=== PATIENT | female | born 1935 | race Caucasian/White ===

== ENCOUNTER → 2018-03-30 12:47 | Outpatient (CLI) | payer MEDICARE, SELFPAY | DX: N30.00 Acute cystitis without hematuria (principal) | CPT/HCPCS: 87086 ==

== ENCOUNTER → 2018-04-29 10:05 | Outpatient (CLI) | payer MEDICARE, SELFPAY ==
--- NOTE | 2018-04-29 10:34 | DI.RAD.S_ITS ---
PROCEDURE: XR SHOULDER RT MIN 2V INDICATIONS: Thoracic back pain, recent fall TECHNIQUE: 3 views of the shoulder were acquired. COMPARISON: None. FINDINGS: Bones: No fractures or dislocations. No suspicious bony lesions. Visualized ribs appear intact. Advanced arthritis at the a.c. joint. Soft tissues: No suspicious soft tissue calcifications. IMPRESSION: 1. No fracture or dislocation. 2. Osteoarthritis acromioclavicular joint. Dictated by: Kieran Zamudio M.D. on 04/29/2018 at 11:31 Approved by: Kieran Zamudio M.D. on 04/29/2018 at 11:32
--- NOTE | 2018-04-29 10:34 | DI.RAD.S_ITS ---
PROCEDURE: XR LUMBAR SPINE 2-3V INDICATIONS: Lumbar and sacral arthritis, recent fall TECHNIQUE: 3 views of the lumbar spine were acquired. COMPARISON: [facility], CR, XR LUMBAR SPINE W FL EX MIN 4VW, 12/03/2016, 10:08. FINDINGS: Bones: 5 [id number] vertebrae are present. There is grade one anterolisthesis at L4-5 and L5-S1, unchanged. Disc narrowing and facet arthropathy at both those levels. Facet narrowing also present at L3-4. No vertebral body compression fractures. No suspicious bony lesions. Soft tissues: Overlying bowel gas pattern is normal. Vascular calcifications. IMPRESSION: 1. Degenerative disc disease, facet arthropathy and malalignment L4-5 and L5-S1, unchanged. 2. Facet arthropathy L3-L4, unchanged. 3. No acute fracture. Dictated by: Kieran Zamudio M.D. on 04/29/2018 at 11:29 Approved by: Kieran Zamudio M.D. on 04/29/2018 at 11:31
--- NOTE | 2018-04-29 10:34 | DI.RAD.S_ITS ---
PROCEDURE: XR THORACIC SPINE 3V INDICATIONS: Thoracic back pain, recent fall TECHNIQUE: 3 views of the thoracic spine were acquired. COMPARISON: None. FINDINGS: Bones: Mild levoconvex curvature upper thoracic spine. Degenerative disc narrowing and anterior bony lipping mid thoracic spine. There is mild angulation deformity in the anterior endplate of T8, raising possibility of minimal fracture. Height of the T8 vertebral body is slightly reduced. No suspicious bony lesions. 12 pairs of ribs are noted, and appear intact where visualized. Soft tissues: No paravertebral stripe thickening. IMPRESSION: 1. Mild scoliosis and degenerative changes. 2. Slight compression deformity of T8 vertebral body is of indeterminate chronicity. Correlate clinically. Suggest follow up exam in 3 weeks to determine any interval change Dictated by: Kieran Zamudio M.D. on 04/29/2018 at 11:10 Approved by: Kieran Zamudio M.D. on 04/29/2018 at 11:28
[2018-04-29 10:39] LABS: Appearance Urine UA CLEAR; Bilirubin Urine UA NEGATIVE (NEGATIVE); Color Urine UA YELLOW; Glucose Urine UA NEGATIVE (Normal); Ketones Urine UA NEGATIVE (NEGATIVE); Leukocyte Esterase Urine UA NEGATIVE (NEGATIVE); Nitrite Urine UA Negative (Negative); Occult Blood Urine UA NEGATIVE (Negative); Protein Urine UA NEGATIVE (Negative); Urobilinogen Urine UA 0.2 E.U./dL (0.2)
[2018-04-29 11:03] LABS: Add Manual Diff / Slide Review NO; Eosinophils Percent Auto 2.1 % (2-4); Hematocrit 44.3 % (36-46); Lymphocytes Percent Auto 19.8 % (25-40); Mean Corpuscular HGB Conc 33.7 % (30-36); Mean Corpuscular Hemoglobin 32.5 PG (26-34); Mean Corpuscular Volume 96.5 fL (80-100); Monocytes Percent Auto 7.3 % (3-14); Neutrophils Absolute Auto 6700 /uL (3000-5900); Neutrophils Percent Auto 69.8 % (50-75); Platelet Count 394 X10^3/uL (150-400); Red Blood Cell Count 4.59 X10^6/uL (4.0-5.2); White Blood Cell Count 9.6 X10^3/uL (4.5-11.0)
[2018-04-29 11:26] LABS: Alanine Aminotransferase 29 IU/L (9-52); Albumin 3.9 g/dL (3.5-5.0); Albumin Globulin Ratio 1.5 (1.0-2.8); Alkaline Phosphatase 85 U/L (38-126); Aspartate Aminotransferase 28 IU/L (14-36); BUN Creatinine Ratio 17.8 (6-22); Bilirubin Total 0.5 mg/dL (0.2-1.3); Blood Urea Nitrogen 16 mg/dL (7-17); Carbon Dioxide 30 mmol/L (22-32); Chloride 101 mmol/L (98-107); Estimated Glomerular Filt Rate 59.9 mL/min (>60); Globulin 2.6 g/dL (1.7-4.1); Glucose 90 mg/dL (80-110); HEMOLYSIS < 15 (0-50); Potassium 4.9 mmol/L (3.4-5.1); Sodium 139 mmol/L (137-145); Total Protein 6.5 g/dL (6.3-8.2); Uric Acid 5.1 mg/dL (2.5-6.2)
[2018-04-29 11:31] LABS: Rheumatoid Factor < 8.6 IU/mL (<12.0)
[2018-04-29 12:23] LABS: Thyroid Stimulating Hormone 1.85 uIU/mL (0.47-4.68)
[2018-04-29 12:31] LABS: Erythrocyte Sedimentation Rate 28 MM/HR (0-20)
[2018-05-02 04:55] LABS: ANA Screen NEGATIVE (Negative); DNA Antibody Crithidia IFA NEGATIVE (Negative); Rheumatoid Factor <14 IU/mL; Sjogren Antiboday SS-A <1.0 NEG AI (<1.0 NEGATIVE); Sjogren Antiboday SS-B <1.0 NEG AI (<1.0 NEGATIVE); Sm Antibody <1.0 NEG AI (<1.0 NEGATIVE); Sm/RNP Antibody <1.0 NEG AI (<1.0 NEGATIVE)
== END ==
PROVIDERS: PCP Family Medicine; Visit Provider Family Medicine
DX: M48.9 Spondylopathy, unspecified (principal); M54.6 Pain in thoracic spine; K21.9 Gastro-esophageal reflux disease without esophagitis; Z13.29 Encounter for screening for other suspected endocrine disorder
CPT/HCPCS: 72072; 72100; 73030; 80053; 81003; 84443; 84550; 85025; 85651; 86038; 86430

== ENCOUNTER → 2019-06-08 11:13 | Outpatient (CLI) | payer MEDICARE, SELFPAY ==
--- NOTE | 2019-06-08 11:17 | DI.RAD.S_ITS ---
PROCEDURE: XR LUMBAR SPINE MIN 4V INDICATIONS: balance and gait issues TECHNIQUE: 5 views of the lumbar spine were acquired. COMPARISON: [facility], MR, MR LUMBAR SPINE WITHOUT CONTRAST, 04/13/2019, 10:58. [facility], CR, XR LUMBAR SPINE 2-3V, 04/29/2018, 10:24. FINDINGS: Bones: 5 nonrib-bearing vertebrae are present. There is abnormal bony alignment, as has been previously the case with grade 1-2 anterolisthesis of L4 on L5 and also L5 on S1. A rudimentary disc is noted at S1-S2.. No vertebral body compression fractures. No suspicious bony lesions. Soft tissues: Overlying bowel gas pattern is normal. No suspicious soft tissue calcifications. Oblique images: No pars defects. IMPRESSION: Moderately severe degenerative disc disease and facet osteoarthritis as has been previously the case allowing anterolisthesis grade 1 Grade II of L4 on L5 and L5 on S1, without interval worsening from the most recent comparison study from 04/13/19. Dictated by: Luisito Gregg M.D. on 06/08/2019 at 12:17 Approved by: Luisito Gregg M.D. on 06/08/2019 at 12:21
== END ==
PROVIDERS: PCP Internal Medicine; Visit Provider Registered Nurse
DX: M43.16 Spondylolisthesis, lumbar region (principal); M43.17 Spondylolisthesis, lumbosacral region; R26.9 Unspecified abnormalities of gait and mobility; M51.36 Other intervertebral disc degeneration, lumbar region; M47.816 Spondylosis without myelopathy or radiculopathy, lumbar region
CPT/HCPCS: 72110

== ENCOUNTER 2019-08-04 12:27 | Outpatient (CLI) | payer MEDICARE, SELFPAY ==
[2019-08-04] VITALS (8 sets, daily range): BP systolic 99–125; BP diastolic 61–77; PULSE 76–93; RESP 16; TEMP 36.6; O2SAT 94–100
--- NOTE | 2019-08-04 12:30 | DI.RAD.S_ITS ---
PROCEDURE: PAIN L INTERLAMINAR/CAUDAL INJ INDICATIONS: SPONDYLOSIS FINDINGS: Fluoroscopic spot filming was performed to verify placement of spinal needles at the L4-L5 level(s), as labeled on the films. Appropriate location(s) of the needle tip(s) was confirmed by injection of iodinated contrast. IMPRESSION: Fluoroscopy for pain management. Dictated by: Alexia Mello M.D. on 08/04/2019 at 17:39 Approved by: Alexia Mello M.D. on 08/04/2019 at 17:39
[2019-08-04] MEDS: MIDAZOLAM 5 MG/5 ML VIAL IV (14:18)
[2019-08-04] MEDS: BETAMETHASONE 30 MG/5 ML MDV 6 MG INJ (14:24)
[2019-08-04] MEDS: IOPAMIDOL 15 ML VIAL 3 ML INJ (14:24)
[2019-08-04] MEDS: BUPIVACAINE 0.25% (PF) VIAL 2 ML INJ (14:24)
[2019-08-04] MEDS: DEXAMETHASONE 10 MG/ML VIAL 20 MG INJ (14:25)
--- NOTE | 2019-08-04 14:27 | PC.NURSE ---
ASSISTING PT OFF TABLE AND TRANSPORTING TO POST PROC AREA IN STABLE CONDITION. PASSING RN CARE OF PT OFF TO VERA Theodore RN.
--- NOTE | 2019-08-04 14:40 | P.PCN_ITS ---
Procedures Date/Time Date of procedure: 08/04/19 Time of procedure: 14:40 General Procedure description: PROVIDER: Willard Pal DO Operative Note PREOP DIAGNOSIS 1. HNP WITH RADICULAR FEATURES, 2. MULTILEVEL CENTRAL STENOSIS, POST OP DIAGNOSIS 1. HNP WITH RADICULAR FEATURES, 2. MULTILEVEL CENTRAL STENOSIS PROCEDURES 1. FLUORSCOPICALLY GUIDED CONTRAST CONTROLLED INTERLAMINAR EPIDURAL STEROID INJECTION -L4/5 PHYSICIAN: Willard Pal DO INDICATIONs: Radha is referred by Dr. Mayes for treatment of Bilateral Foraminal Stenosis R>L LE symptoms. FINDINGS Multilevel Central Spinal Stenosis with Nerve Root Compression DESCRIPTION OF PROCEDURE Fluoroscopically guided, contrast-controlled L4/5 translaminar epidural steroid injection. Following review of allergy and review of potential side effects and complications, including, but not necessarily limited to, infection, allergic reaction, local tissue breakdown, temporary as well as permanent nerve injury, paralysis, stroke and possible , the patient indicated that the patient understood and agreed to proceed. An informed consent document was signed by the patient, witnessed by a nurse, and placed in the patient's chart. Additionally, other treatment options including modalities, medications, and physical therapy were reviewed with the patient. After review of previous anaesthesic history and IV conscious sedation the patient was deemed safe to proceed with todays procedure with IV conscious sedation as ASA class II designation. Safety time-out was performed to confirm patient ID, procedure to be performed and site of procedure. IV sedation was accomplished with a combination of 1mg of Versed was administered by the RN after DO order, titrated to patient comfort during the course of the procedure while the patient remained responsive to all verbal commands In the prone position, following sterile prep and drape of the lumbar region, the L4/5 translaminar space was identified fluoroscopically. The skin was anesthetized via a 25-gauge, 1.5-inch needle with 1% lidocaine solution. At this point, a 22-gauge short bevel spinal needle was atraumatically introduced and advanced under fluoroscopic guidance into the region of the L4/5 tr anslaminar space. Depth was confirmed on lateral view. Radiological data, including multiple fluoroscopic views of the lumbar spine, reveal a spinal needle at the L4/5 translaminar space. Lateral views then show placement of the needle in the epidural space. Subsequent views show contrast material flowing superiorly and inferiorly in the epidural space. No vascular or intrathecal uptake is observed. At this point, using loss of resistance technique with saline and air, the epidural space was entered. This was confirmed following negative aspiration with injection of approximately 1.5 cc of Isovue 200, showing excellent epidural flow without vascular or intrathecal uptake. At this point, 1 cc of 1% lidocaine solution combined with 3cc or 20mg of dexamethasone and 6mg betamethasone was injected without incident. The patient tolerated the procedure well without signs or symptoms of complications prior to transfer to the recovery area continued monitoring without incident. The patient was then transferred to the recovery area where they were observed for an appropriate period of time after the injection. The patient reported a VAS score of 6 prior to the procedure and a post- procedure VAS of 0. Total Fluoroscopy Time: 11.8 seconds, 8.99 mGy Total Conscious Sedation Time: 24min POST OP INSTRUCTIONS The patient was provided a Pain Log to continue to record their response to the target-specific procedure prior to follow-up visit with their referring physician. Additionally, specific post-injection care instructions and a contact number to our office were provided if concerns arise regarding possible complications associated with the procedure are suspected. Willard Pla, Complications: none
== END 2019-08-04 15:00 ==
LOC: RAD 12:29
PROVIDERS: PCP Internal Medicine; Visit Provider Physical Medicine & Rehabilitation
DX: M51.16 Intervertebral disc disorders with radiculopathy, lumbar region (principal); M48.061 Spinal stenosis, lumbar region without neurogenic claudication
CPT/HCPCS: 62323; 99152; J0702; J1100; J2250; J3010

== ENCOUNTER → 2023-03-23 13:30 | Outpatient (CLI) | payer MEDICARE, SELFPAY ==
--- NOTE | 2023-03-23 | DI.CT.S_ITS ---
PROCEDURE: CT THORACIC SPINE WO CON INDICATIONS: Unspecified fracture of T7-T8 vertebra, subsequent encounter TECHNIQUE: Noncontrast 3 mm thick sections acquired through the region of interest in the thoracic spine. Sagittal and coronal reformats were then constructed. For radiation dose reduction, the following was used: automated exposure control. COMPARISON: [facility], CT, CT THORACIC SPINE WITHOUT CONTRAST, 03/03/2023, 23:54. FINDINGS: Image quality: Excellent. Bones: Wedge-shaped T8 compression fractures again noted with 8% anterior height loss and small retropulsed fracture fragment resulting in mild stenosis at T8-9, stable from the prior exam. Results in an exaggerated kyphosis. Multilevel degenerative disc disease and arthropathy noted in the lower cervical spine and upper thoracic spine resulting in moderate central stenosis at C7-T1 Soft tissues: No paravertebral masses or hematomas. Visualized posteromedial lungs appear clear. Moderate pulmonary emphysema and stable right upper lobe mass lesion measuring 1.2 cm bulky adenopathy in the mediastinum again noted stable from prior exam, largest is a pretracheal node measuring 1.4 by 1.1 cm IMPRESSION: Stable T8 wedge-shaped compression fracture with small retropulsed fracture fragment and mild central stenosis Degenerative disc disease and arthropathy at the thoracolumbar junction results in moderate central stenosis. Stable right upper lobe spiculated mass lesion and mediastinal adenopathy Approved by: Saleem Shaw M.D. on 03/23/2023 at 19:17
== END ==
PROVIDERS: PCP Internal Medicine; Referring Provider Nurse Practitioner Family; Visit Provider Nurse Practitioner Family
DX: S22.060D Wedge compression fracture of T7-T8 vertebra, subsequent encounter for fracture with routine healing (principal); M51.34 Other intervertebral disc degeneration, thoracic region; M47.814 Spondylosis without myelopathy or radiculopathy, thoracic region; M48.04 Spinal stenosis, thoracic region; R91.8 Other nonspecific abnormal finding of lung field; R59.0 Localized enlarged lymph nodes
CPT/HCPCS: 72128

== ENCOUNTER → 2023-03-24 12:04 | Outpatient (ROUT) | payer MEDICARE, SELFPAY ==
[2023-03-24 12:27] LABS: Appearance Urine UA CLOUDY; Bilirubin Urine UA NEGATIVE (NEGATIVE); Color Urine UA YELLOW; Glucose Urine UA NEGATIVE (Negative); Ketones Urine UA TRACE (NEGATIVE); Leukocyte Esterase Urine UA 3+ (NEGATIVE); Nitrite Urine UA POSITIVE (Negative); Occult Blood Urine UA TRACE-INTACT (Negative); Protein Urine UA 1+ (Negative); Specific Gravity Urine UA 1.015 (1.000-1.035)
[2023-03-24 12:46] LABS: Bacteria Urine Many (>30); RBC Urine 1-5/HPF (0-5/HPF); Squamous Epithelial Cell Urine 1-5 /HPF (0-5/HPF); WBC Urine 30-100/HPF (0-5/HPF)
[2023-03-24 12:47] LABS: Culture Indicated Urine Specimen Cultured
== END ==
PROVIDERS: PCP Internal Medicine; Visit Provider Nurse Practitioner Family
DX: N39.0 Urinary tract infection, site not specified (principal)
CPT/HCPCS: 81001; 87077; 87086; 87186